=== PATIENT | female | born 1930 | race African-American/Black ===

== ENCOUNTER → 2016-07-10 | Outpatient (CLI) | payer MEDICARE, BC ==
--- NOTE | 2016-07-10 15:10 | KCIC ---
CHEST, TWO VIEWS, 07/10/2016: History: Shortness of breath Comparison is made to a study from 02/20/2015. The heart size is normal. No pulmonary infiltrates are seen. There is no evidence of pleural fluid. Moderate spurring is present in the spine. IMPRESSION: No acute cardiopulmonary abnormality is detected. Electronically signed by: Luico Mckenzie MD (Jul 10, 2016 15:08:44)
== END | disposition home or self-care (01) ==
LOC: KCIC 14:22
PROVIDERS: ATTEND Family Medicine
DX: R06.00 Dyspnea, unspecified (principal); R53.83 Other fatigue; R06.02 Shortness of breath
CPT/HCPCS: 71020